=== PATIENT | male | born 1990 | race Caucasian/White ===

== ENCOUNTER 2017-07-09 12:52 | Emergency (ER) | payer SELFPAY ==
[~2017-07-09] VITALS: Ht 177.8 cm; Wt 88.5 kg
--- NOTE | 2017-07-09 13:09 | NUR ---
PT WAS EVALUATED BY DR ARMANDO. PT WAS D/C TO HOME. D/C INSTRUCTIONS GIVEN TO THE PT.
[2017-07-09 13:10] VITALS: BP 139/88
== END 2017-07-09 13:11 | disposition home or self-care (01) ==
LOC: ER 12:52
DX: S13.4XXA Sprain of ligaments of cervical spine, initial encounter (principal); V49.9XXA Car occupant (driver) (passenger) injured in unspecified traffic accident, initial encounter; Y93.89 Activity, other specified; Y92.413 State road as the place of occurrence of the external cause; Y99.8 Other external cause status
CPT/HCPCS: 99281; A4663